=== PATIENT | female | born 1945 | race Caucasian/White ===

== ENCOUNTER 2018-10-11 09:46 | Emergency (ER) | payer MEDICARE, OTHER ==
[~2018-10-11] VITALS: Ht 162.6 cm; Wt 68.0 kg
[~2018-10-11 09:46] MED LIST: CEPH500 PO; Pyridium200 MG PO
[2018-10-11] MEDS ORDERED: Zithromax250 MG PO (10:39)
== END 2018-10-11 10:42 | disposition home or self-care (01) ==
LOC: ER 09:46
DX: R05 Cough (principal)
CPT/HCPCS: 71046; 99283-25